=== PATIENT | female | born 1985 ===

== ENCOUNTER 2018-02-21 16:59 | Emergency (ER) | payer MEDICARE ==
[2018-02-21 17:34] VITALS: BP 105/72
--- NOTE | 2018-02-21 20:11 | C.PDOC ---
History Of Present Illness Pt is a 32 yo female who presents with c/c of abdominal pain for the past 3-4 months intermittently.Pt is but feels that she may be .Pt also states she has been having L sided flank pain.Pt denies any vag bleeding.Of concern is that the pt told triage nurse that she was 7 mos yet has no external evidence of a gravid uterus.Pt is insisting that we do an ultrasound because"pregancy tests can be wrong"Pt has intermittent dysuria and frequency.No fevers Chief Complaint (Nursing): Abdominal Pain Past Medical History Vital Signs: Last Vital Signs Temp 96.3 F L 02/21/18 23:34 Pulse 72 02/21/18 23:34 Resp 22 02/21/18 23:34 BP 105/72 02/21/18 17:31 Pulse Ox 100 02/22/18 00:45 Family History: States: No Known Family Hx - Social History Hx Alcohol Use: No Hx Substance Use: No - Immunization History Hx Influenza Vaccination: No ED Course And Treatment - Laboratory Results Result Diagrams: 02/21/18 20:21 02/21/18 20:21 O2 Sat by Pulse Oximetry: 100 (RA) Pulse Ox Interpretation: Normal Medical Decision Making Medical Decision Making: Patient results were reviewed with patient and was told she is not . She was informed of her WBC elevation and was offered a CT. Patient denied CT stating "can't that be harmful to the baby". She was informed again that she is not . Patient refused CT scan and is stable for discharge. PMD: None provided Disposition - Disposition Referrals: [facility] [Outside] Disposition: HOME/ ROUTINE Disposition Time: 08:52 Condition: FAIR Instructions: Acute Abdomen (Belly Pain), Adult (DC) Forms: [employer] ([place]) Print Language: IRISH - Clinical Impression Clinical Impression: Chronic abdominal pain
[2018-02-21 20:24] LABS: BASO # 0.1 K/uL (0.0-0.2); BASO % 0.6 % (0.0-2.0); EOS # 0.2 K/uL (0.0-0.7); EOS % 1.5 % (0.0-4.0); LYMPH # 3.2 K/uL (1.0-4.3); LYMPH % 26.8 % (20.0-40.0); MEAN CELL VOLUME 83.7 fL (81.0-99.0); MEAN CORPUSCULAR HEMOGLOBIN 28.8 pg (27.0-31.0); MEAN CORPUSCULAR HGB CONC 34.4 g/dL (33.0-37.0); MEAN PLATELET VOLUME 7.9 fL (7.2-11.7); MONO # 0.9 K/uL (0.0-0.8); MONO % 7.5 % (0.0-10.0); NEUT # 7.6 K/uL (1.8-7.0); NEUT % 63.6 % (50.0-75.0); RBC 4.53 Mil/uL (3.80-5.20); RED CELL DISTRIBUTION WIDTH 14.1 % (11.5-14.5)
[2018-02-21 20:36] LABS: ALB/GLOB RATIO 1.3 (1.0-2.1); ALBUMIN 4.2 g/dL (3.5-5.0); ALT/SGPT 81 U/L (9-52); AST/SGOT 47 U/L (14-36); BLOOD UREA NITROGEN 16 mg/dL (7-17); CALCIUM 9.2 mg/dl (8.6-10.4); GFR AFRICAN-AMERICAN > 60; GFR NON-AFRICAN AMERICAN > 60; LIPASE 191 U/L (23-300)
[2018-02-21 22:46] LABS: SQUAMOUS EPITHIAL 2 /hpf (0-5); URINE BILIRUBIN NEGATIVE (NEGATIVE); URINE BLOOD NEGATIVE (NEGATIVE); URINE CLARITY Hazy (Clear); URINE COLOR Yellow (YELLOW); URINE GLUCOSE (UA) NORMAL (Normal); URINE LEUKOCYTE ESTERASE TRACE Leu/uL (Negative); URINE PROTEIN NEGATIVE (NEGATIVE); URINE UROBILINOGEN NORMAL mg/dL (0.2-1.0)
[2018-02-21 23:44] VITALS: PULSE 72; RESP 22; TEMP 96.3
[2018-02-22 00:43] VITALS: O2SAT 100
== END 2018-02-21 23:33 | disposition home or self-care (01) ==
LOC: C.ER 16:59
DX: G89.29 Other chronic pain (principal); R10.9 Unspecified abdominal pain